=== PATIENT | male | born 1970 | race Caucasian/White ===

== ENCOUNTER 2017-10-09 05:58 | Emergency (ER) | payer MEDICARE, OTHER ==
[~2017-10-09] VITALS: Ht 177.8 cm; Wt 100.9 kg
[~2017-10-09 05:58] MED LIST: CARV3.12 PO; CIPR500T2 PO; ECOT325T PO; ENAL2.5 PO; GLUCOMETER; INSU100V3 SC; INSULIN SYRINGES; NOVOINJ5 SQ; TYLE3 PO; ZOCO40TA PO
[2017-10-09 05:59] VITALS: BP 179/96; PULSE 90; RESP 17; TEMP 98.6; O2SAT 98
[2017-10-09] MEDS ORDERED: IOHEXOL 350 MG/ML 50 ML BTL (for RAD DIAG) OTHER ONE (05:59)
[2017-10-09] MEDS ORDERED: CARV3.12 PO (06:34)
[2017-10-09] MEDS ORDERED: ATOR40TA16 PO (06:34)
[2017-10-09] MEDS ORDERED: LEVEMIR SQ (06:34)
[2017-10-09] MEDS ORDERED: HYDR-3799 PO (06:34)
[2017-10-09] MEDS ORDERED: ASPI-516 CHEW (06:34)
[2017-10-09] MEDS ORDERED: CLOP75TA PO (06:34)
--- NOTE | 2017-10-09 06:50 | PD ---
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 He recently had a peritoneal dialysis port put in another hospital. On Friday they went and put in 500 of dialysate and then got back 500 cc dialysate without any problem. Then today he went and they could not get any inflow in the dialysate and it seems that the tubing and the port were clogged. Again nothing was able to go in and nothing came out. Patient is followed at another hospital but wanted a second opinion because he felt the surgeon paul the surgery to put this peritoneal dialysis catheter in. He has a history of sarcoidosis which led to heart issues that led to prednisone which led to major weight gain which led to a bariatric surgery in 2013 to lose weight. Main complaint now is has tender abdominal pain diffuse around the periumbilical area. He also complains nonfunctioning dialysate port, associated Symptom is constipation and prior to that his stools were loose. He has not taken anything for this pain. PFSH Past Medical History Hx Anticoagulant Therapy: Yes (Plavix) Anxiety: No Depression: No Cancer: No Cardiovascular Problems: Yes (HTN, Stent x3) Diabetes: Yes Patient Takes Glucophage: No Endocrine: Yes Genitourinary: No Hypertension: Yes Immune Disorder: No Musculoskeletal: No Neurologic: No Psychiatric: No Reproductive: No Respiratory: Yes (PULMONARY SARCOIDOSIS ) Renal Failure: Yes Past Surgical History Other Surgery: No Social History Alcohol Use: No Tobacco Use: No Substance Use: No Allergies-Medications (Allergen,Severity, Reaction): Coded Allergies: No Known Allergies (Verified , 02/03/11) Reported Meds & Prescriptions Reported Meds & Active Scripts Active Reported Levemir Inj (Insulin Detemir) 1,000 unit/ 10 ML Vial 10 Units SQ BID Do not mix with any other Insulin. Hydralazine HCl 25 Mg Tablet 25 Mg PO BID Clopidogrel (Clopidogrel Bisulfate) 75 Mg Tab 75 Mg PO DAILY Carvedilol 3.125 Mg Tab 3.125 Mg PO BID Atorvastatin (Atorvastatin Calcium) 40 Mg Tab 40 Mg PO HS Aspirin 81 Mg Chew 81 Mg CHEW DAILY Review of Systems Except as stated in HPI: all other systems reviewed are Neg Gastrointestinal: Positive: Abdominal Pain (Dialysate port not working) Physical Exam Narrative GENERAL: Patient is nontoxic-appearing nonseptic appearing in no acute distress SKIN: Warm and dry. HEAD: Atraumatic. Normocephalic. EYES: Pupils equal and round. No scleral icterus. No injection or drainage. ENT: No nasal bleeding or discharge. Mucous membranes pink and moist. NECK: Trachea midline. No JVD. CARDIOVASCULAR: Regular rate and rhythm. RESPIRATORY: No accessory muscle use. Clear to auscultation. Breath sounds equal bilaterally. GASTROINTESTINAL: Abdomen in the left lower quadrant there is a noninfected looking dialysate port with dialysate in the tubing there is one little streak of blood but no clots seen there is no signs of purulence in the tubing and his no rebound on his abdomen however mild tenderness to percussion on the right side of his periumbilical area nondistended. Hepatic and splenic margins not palpable. MUSCULOSKELETAL: Extremities without clubbing, cyanosis, or edema. No obvious deformities. NEUROLOGICAL: Awake and alert. No obvious cranial nerve deficits. Motor grossly within normal limits. Five out of 5 muscle strength in the arms and legs. Normal speech. PSYCHIATRIC: Appropriate mood and affect; insight and judgment normal. Data Data Last Documented VS Vital Signs Date Time Temp Pulse Resp B/P (MAP) Pulse Ox O2 Delivery O2 Flow Rate FiO2 10/09/17 14:00 10/09/17 12:35 79 16 100 Nasal Cannula 2.00 Orders Orders Complete Blood Count With Diff (10/09/17 06:50) Comprehensive Metabolic Panel (10/09/17 06:50) C-Reactive Protein (Crp) (10/09/17 06:50) Lipase (10/09/17 06:50) Abdomen, Kub Only (10/09/17 ) Midazolam Inj (Versed Inj) (10/09/17 11:29) Fentanyl Inj (Fentanyl Inj) (10/09/17 11:29) Heparin Inj (Heparin Inj) (10/09/17 11:52) Peritoneogram (10/09/17 ) Iohexol 350 Inj (Omnipaque 350 Inj) (10/09/17 05:59) Radiology Film Requests (10/09/17 ) Ed Discharge Order (10/09/17 13:37) Peritoneal Catheter Reposition (10/09/17 ) Labs Laboratory Tests Test 10/09/17 07:12 White Blood Count 8.5 TH/MM3 Red Blood Count 3.43 MIL/MM3 Hemoglobin 9.9 GM/DL Hematocrit 30.3 % Mean Corpuscular Volume 88.3 FL Mean Corpuscular Hemoglobin 28.9 PG Mean Corpuscular Hemoglobin Concent 32.8 % Red Cell Distribution Width 15.9 % Platelet Count 225 TH/MM3 Mean Platelet Volume 7.3 FL Neutrophils (%) (Auto) 74.3 % Lymphocytes (%) (Auto) 10.9 % Monocytes (%) (Auto) 9.7 % Eosinophils (%) (Auto) 4.2 % Basophils (%) (Auto) 0.9 % Neutrophils # (Auto) 6.3 TH/MM3 Lymphocytes # (Auto) 0.9 TH/MM3 Monocytes # (Auto) 0.8 TH/MM3 Eosinophils # (Auto) 0.4 TH/MM3 Basophils # (Auto) 0.1 TH/MM3 CBC Comment DIFF FINAL Differential Comment Blood Urea Nitrogen 39 MG/DL Creatinine 5.52 MG/DL Random Glucose 129 MG/DL Total Protein 6.8 GM/DL Albumin 2.9 GM/DL Calcium Level 7.6 MG/DL Alkaline Phosphatase 75 U/L Aspartate Amino Transf (AST/SGOT) 14 U/L Alanine Aminotransferase (ALT/SGPT) 13 U/L Total Bilirubin 0.5 MG/DL Sodium Level 140 MEQ/L Potassium Level 4.6 MEQ/L Chloride Level 109 MEQ/L Carbon Dioxide Level 21.9 MEQ/L Anion Gap 9 MEQ/L Estimat Glomerular Filtration Rate 11 ML/MIN C-Reactive Protein 6.50 MG/DL Lipase 92 U/L [facility] Medical Decision Making Medical Screen Exam Complete: Yes Emergency Medical Condition: Yes Differential Diagnosis dialysis catheter malfunction vs fractured catheter vs other Narrative Course I initiated work up and xrays and signed out to oncoming attending Diagnosis Primary Impression: Peritoneal dialysis catheter dysfunction Matthew Cuevas MD Oct 09, 2017 06:50
[2017-10-09 07:26] LABS: AUTOMATED NEUTROPHIL # 6.3 TH/MM3 (1.8-7.7); BASOPHIL # 0.1 TH/MM3 (0-0.2); BASOPHIL % 0.9 % (0.0-2.0); EOSINOPHIL # 0.4 TH/MM3 (0-0.4); EOSINOPHIL % 4.2 % (0.0-4.0); HEMATOCRIT 30.3 % (39.0-51.0); HEMOGLOBIN 9.9 GM/DL (13.0-17.0); LYMPH % 10.9 % (9.0-44.0); LYMPHOCYTE # 0.9 TH/MM3 (1.0-4.8); MEAN CELL VOLUME 88.3 FL (80.0-100.0); MEAN CORPUSCULAR HEMOGLOBIN 28.9 PG (27.0-34.0); MEAN CORPUSCULAR HGB CONC 32.8 % (32.0-36.0); MEAN PLATELET VOLUME 7.3 FL (7.0-11.0); MONO % 9.7 % (0.0-8.0); MONOCYTE # 0.8 TH/MM3 (0-0.9); NEUT % 74.3 % (16.0-70.0); PLATELET COUNT 225 TH/MM3 (150-450); RED BLOOD COUNT 3.43 MIL/MM3 (4.50-5.90); RED CELL DISTRIBUTION WIDTH 15.9 % (11.6-17.2); WHITE BLOOD COUNT 8.5 TH/MM3 (4.0-11.0)
[2017-10-09 07:54] LABS: ALBUMIN 2.9 GM/DL (3.4-5.0); ALT (GPT) 13 U/L (12-78); AST (GOT) 14 U/L (15-37); BICARBONATE 21.9 MEQ/L (21.0-32.0); BLOOD UREA NITROGEN 39 MG/DL (7-18); CALCIUM 7.6 MG/DL (8.5-10.1); CHLORIDE 109 MEQ/L (98-107); CREATININE 5.52 MG/DL (0.60-1.30); GLOMERULAR FILTRATION RATE 11 ML/MIN (>89); GLUCOSE,RANDOM 129 MG/DL (74-106); SODIUM (NA) 140 MEQ/L (136-145)
[2017-10-09 07:56] LABS: ALKALINE PHOSPHATASE 75 U/L (45-117); TOTAL BILIRUBIN ADULT 0.5 MG/DL (0.2-1.0); TOTAL PROTEIN 6.8 GM/DL (6.4-8.2)
--- NOTE | 2017-10-09 08:38 | RADRPT ---
EXAM DATE/TIME: 10/09/2017 07:51 [facility] COMPARISON: No previous studies available for comparison. INDICATIONS : Constipation after peritoneal dialysis catheter placement. MEDICAL HISTORY : Hypertension. Renal failure, chronic. Diabetes mellitus type II. SURGICAL HISTORY : Cardiac stent, dialysis catheter ENCOUNTER: Initial ACUITY: 3 weeks PAIN SCORE: 7/10 LOCATION: Left lower quadrant abdomen FINDINGS: Supine view of the abdomen was performed. The abdominal bowel gas pattern is normal. No abnormal ma sses, calcifications, or organomegaly is seen. The osseous structures are unremarkable. Surgical clips in the left upper abdominal quadrant may be related to a prior gastric bypass. Periton eal dialysis catheter is identified in the left abdomen with the pigtail tip projecting over the mid sacrum. Multiple phleboliths in the pelvis CONCLUSION: 1. Left-sided peritoneal dialysis catheter with the pigtail tip projecting over the mid sacrum. 2. Nonobstructive bowel gas pattern. No pneumoperitoneum Dilshad Gaytan MD on October 09, 2017 at 8:34 Board Certified Radiologist. This report was verified electronically.
--- NOTE | 2017-10-09 08:52 | PD ---
Physical Exam Narrative GENERAL: SKIN: Warm and dry. HEAD: Atraumatic. Normocephalic. EYES: Pupils equal and round. No scleral icterus. No injection or drainage. ENT: No nasal bleeding or discharge. Mucous membranes pink and moist. NECK: Trachea midline. No JVD. CARDIOVASCULAR: Regular rate and rhythm. RESPIRATORY: No accessory muscle use. Clear to auscultation. Breath sounds equal bilaterally. GASTROINTESTINAL: Abdomen soft, non-tender, nondistended. Noted peritoneal dialysis catheter on the left lower quadrant no surrounding cellulitic changes over the skin, no rebound or rigidity. MUSCULOSKELETAL: Extremities without clubbing, cyanosis, or edema. No obvious deformities. NEUROLOGICAL: Awake and alert. No obvious cranial nerve deficits. Motor grossly within normal limits. Five out of 5 muscle strength in the arms and legs. Normal speech. PSYCHIATRIC: Appropriate mood and affect; insight and judgment normal. Data Data Last Documented VS Vital Signs Date Time Temp Pulse Resp B/P (MAP) Pulse Ox O2 Delivery O2 Flow Rate FiO2 10/09/17 12:35 79 16 131/81 (98) 100 Nasal Cannula 2.00 10/09/17 05:59 98.6 Orders Orders Complete Blood Count With Diff (10/09/17 06:50) Comprehensive Metabolic Panel (10/09/17 06:50) C-Reactive Protein (Crp) (10/09/17 06:50) Lipase (10/09/17 06:50) Abdomen, Kub Only (10/09/17 ) Midazolam Inj (Versed Inj) (10/09/17 11:29) Fentanyl Inj (Fentanyl Inj) (10/09/17 11:29) Heparin Inj (Heparin Inj) (10/09/17 11:52) Peritoneogram (10/09/17 ) Iohexol 350 Inj (Omnipaque 350 Inj) (10/09/17 05:59) Labs Laboratory Tests Test 10/09/17 07:12 White Blood Count 8.5 TH/MM3 Red Blood Count 3.43 MIL/MM3 Hemoglobin 9.9 GM/DL Hematocrit 30.3 % Mean Corpuscular Volume 88.3 FL Mean Corpuscular Hemoglobin 28.9 PG Mean Corpuscular Hemoglobin Concent 32.8 % Red Cell Distribution Width 15.9 % Platelet Count 225 TH/MM3 Mean Platelet Volume 7.3 FL Neutrophils (%) (Auto) 74.3 % Lymphocytes (%) (Auto) 10.9 % Monocytes (%) (Auto) 9.7 % Eosinophils (%) (Auto) 4.2 % Basophils (%) (Auto) 0.9 % Neutrophils # (Auto) 6.3 TH/MM3 Lymphocytes # (Auto) 0.9 TH/MM3 Monocytes # (Auto) 0.8 TH/MM3 Eosinophils # (Auto) 0.4 TH/MM3 Basophils # (Auto) 0.1 TH/MM3 CBC Comment DIFF FINAL Differential Comment Blood Urea Nitrogen 39 MG/DL Creatinine 5.52 MG/DL Random Glucose 129 MG/DL Total Protein 6.8 GM/DL Albumin 2.9 GM/DL Calcium Level 7.6 MG/DL Alkaline Phosphatase 75 U/L Aspartate Amino Transf (AST/SGOT) 14 U/L Alanine Aminotransferase (ALT/SGPT) 13 U/L Total Bilirubin 0.5 MG/DL Sodium Level 140 MEQ/L Potassium Level 4.6 MEQ/L Chloride Level 109 MEQ/L Carbon Dioxide Level 21.9 MEQ/L Anion Gap 9 MEQ/L Estimat Glomerular Filtration Rate 11 ML/MIN C-Reactive Protein 6.50 MG/DL Lipase 92 U/L [facility] Medical Record Reviewed: Yes Supervised Visit with JESSE: No Differential Diagnosis Small bowel obstruction pneumoperitoneum colitis diverticulitis versus dialysis displacement versus nonfunctional peritoneal dialysis catheter Narrative Course Abdominal KUB notes a left-sided peritoneal dialysis catheter with the pigtail tip projecting over the mid sacrum, nonobstructive bowel gas pattern no pneumoperitoneum per radiologist report CBC shows no leukocytosis, normal platelet count, no left shift, however some anemia of 10/30 Chemistry shows normal potassium of 4.6 normal sodium 140 no anion gap normal carbon dioxide of 22, as expected elevated BUN and creatinine of 39 and 5.5 to respectively. GFR at 11, random glucose of 129. Lipase is within normal Patient at 1245 return from [facility], with the verbal report is that the peritoneal catheter is coiled in its in a pocket and this will explain why there is intermittent difficulty flushing and utilizing the catheter. Although the catheter is usually usable and was able to flush, radiologist recommends that the patient have the catheter readjusted/reinserted. This was explained to the family and patient who went ahead and contacted surgeon and Felix for follow-up today,. Patient has been n.p.o. for approximately 6 hours Diagnosis Primary Impression: Peritoneal catheter dysfunction Disposition: 01 DISCHARGE HOME Condition: Stable Antony Patino MD Oct 09, 2017 08:52
[2017-10-09] MEDS ORDERED: fentaNYL CITRATE 250 MCG/5 ML AMP ONE (11:29)
[2017-10-09] MEDS ORDERED: MIDAZOLAM HCL 2 MG/2 ML VIAL ONE (11:29)
[2017-10-09] MEDS ORDERED: HEPARIN SODIUM - IV 10,000 UNITS/10 ML VIAL ONE (11:52)
[2017-10-09 12:35] VITALS: BP 131/81; PULSE 79; RESP 16; O2SAT 100
--- NOTE | 2017-10-09 13:26 | RADRPT ---
EXAM DATE/TIME: 10/09/2017 11:44 [facility] COMPARISON: No previous studies available for comparison. INDICATIONS : Patient with history of kidney failure in need of evaluation of non functioning peritoneal dialysis c jean. MEDICAL HISTORY : HTN Renal failure DM II Pulmonary Sarcoidosis SURGICAL HISTORY : Cardiac stent Dialysis catheter ENCOUNTER: Initial ACUITY: 1 day PAIN SCORE: 8/10 LOCATION: Pelvis FLUORO TIME: 3.3 minutes IMAGE SERIES: 3 SEDATION TIME: 30minutes CONTRAST: 30 cc Omnipaque (iohexol) 350 MEDICATION(S): 1.) 3 mg midazolam (Versed) IV 2.) 200 mcg fentanyl (Sublimaze) IV PROCEDURE : 1. peritoneogram The risks, benefits and alternatives to the procedure were explained and verbal and written consent w as obtained. The site was prepped in sterile fashion. Full sterile technique was used, including ca p, mask, sterile gloves and gown and a large sterile sheet. Hand hygiene and 2% chlorhexidine and/or betadine/alcohol prep was utilized per protocol for cutaneous antisepsis. The skin and subcutaneous tissues were infiltrated with local anesthetic solution. Contrast was injected demonstrating no locules to impede flow. Multiple guidewires were passed throug h the catheter to be relieve any traction. No catheter dysfunction was identified. CONCLUSION: Peritoneogram as above Heath Byrd MD on October 09, 2017 at 13:23 Board Certified Radiologist. This report was verified electronically.
== END 2017-10-09 14:14 | disposition home or self-care (01) ==
LOC: NEPC 05:58
DX: T85.691A Other mechanical complication of intraperitoneal dialysis catheter, initial encounter (principal); I12.0 Hypertensive chronic kidney disease with stage 5 chronic kidney disease or end stage renal disease; E11.22 Type 2 diabetes mellitus with diabetic chronic kidney disease; N18.6 End stage renal disease; D86.9 Sarcoidosis, unspecified; Z99.2 Dependence on renal dialysis; Z95.5 Presence of coronary angioplasty implant and graft; Z98.84 Bariatric surgery status
CPT/HCPCS: 49400; 74018; 74190; 80053; 83690; 85025; 86140; 99152; 99153; 99285; C1769; J1644; J2250; J3010; Q9967